=== PATIENT | female | born 1955 | race Caucasian/White ===

== ENCOUNTER 2025-01-03 06:48 | Observation (INO) | payer MEDICARE ==
[2024-12-29 12:00] VITALS: BP 124/64; PULSE 63; RESP 18; TEMP 97.3
[2024-12-29 12:08] LABS: BASOPHILS # (AUTO) 0.11 K/uL (0.00-0.20); BASOPHILS % (AUTO) 1.1 % (0.0-5.0); EOSINOPHILS # (AUTO) 0.05 K/uL (0.00-0.70); EOSINOPHILS % (AUTO) 0.5 % (0.0-8.0); HEMATOCRIT 45.3 % (36-48); IMMATURE GRANULOCYTE ABSOLUTE 0.03 K/uL (0-1); LYMPHOCYTES # (AUTO) 2.7 K/uL (1.0-4.8); LYMPHOCYTES % (AUTO) 27.7 % (21.0-51.0); MEAN CORPUSCULAR HEMOGLOBIN 28.8 pg (27.0-33.0); MEAN CORPUSCULAR HGB CONC 32.5 g/dL (32.0-36.0); MEAN CORPUSCULAR VOLUME 88.6 fL (79-99); MONOCYTES # (AUTO) 0.7 K/uL (0.1-1.0); MONOCYTES % (AUTO) 6.6 % (3.0-13.0); NEUTROPHILS # (AUTO) 6.3 K/uL (1.8-7.7); NEUTROPHILS % (AUTO) 63.8 % (40.0-77.0); PLATELET COUNT (AUTO) 281 K/uL (130-400); RED BLOOD CELL COUNT(AUTO) 5.11 MIL/uL (4.00-5.50); RED CELL DISTRIBUTION WIDTH 12.5 % (11.0-15.5); WHITE BLOOD COUNT (AUTO) 9.8 K/uL (4.8-10.8)
[2024-12-29 12:19] LABS: INR 0.98 (0.85-1.15)
[2024-12-29 12:25] LABS: APPEARANCE,URINE CLEAR (CLEAR); BILIRUBIN,URINE NEGATIVE (NEGATIVE); COLOR,URINE LIGHT-YELLOW (YELLOW); GLUCOSE, URINE (UA) NEGATIVE (NEGATIVE); KETONES,URINE NEGATIVE (NEGATIVE); LEUKOCYTE ESTERASE ,URINE 250 Leu/uL (NEGATIVE); NITRATE,URINE NEGATIVE (NEGATIVE); OCCULT BLOOD,URINE NEGATIVE (NEGATIVE); PH,URINE 6.5 (5.0-8.0); PROTEIN,URINE NEGATIVE (NEGATIVE); UROBILINOGEN,URINE 0.2 mg/dL (0.2-1.0)
[2024-12-29 12:26] LABS: ADD UA MICROSCOPIC YES
[2024-12-29 12:27] LABS: CREATININE 0.8 mg/dL (0.5-1.0); POTASSIUM 5.1 mmol/L (3.5-5.1)
[2024-12-29 12:29] LABS: BACTERIA,URINE RARE /HPF (None Seen); MUCUS,URINE RARE LPF (None Seen); RBC,URINE 0-1 /HPF (0-1); SQUAMOUS EPITHELIAL CELL,UR RARE /HPF (0-2)
--- NOTE | 2025-01-02 09:51 | NUR ---
RE: LABS REPORTED UA AND URINE CX RESULTS TO DR TREVINO, NO NEW ORDERS RECEIVED.
[~2025-01-03] VITALS: Ht 167.6 cm; Wt 83.5 kg
[2025-01-03] VITALS (27 sets, daily range): BP systolic 108–160; BP diastolic 49–87; PULSE 52–82; RESP 12–19; TEMP 97.6–98.2; O2SAT 99
[~2025-01-03 06:48] MED LIST: EZET10TA48 PO; FENTanyl CITRate PF 50 MCG/1 ML 2ML VIAL ONE; GLYCOPYRROLATE 0.2 MG/ML 5 ML VIAL ONE; LIDOCAINE PF 100MG/5ML (2%) SYRINGE 5ML ONE; LISI1TAB51 PO; MIDAZOLAM HCL 1 MG/ML 2ML VIAL ONE; NEOSTIGMINE METHYLSULFATE 1MG/ML IV ONE; SUCCINYLCHOLINE CHLORIDE 20 MG/ML 10 ML VIAL ONE; dexaMETHasone SOD PHOSPHATE 10MG/ML 1ML VIAL ONE; ondanSETRON 4MG INJ ONE; proPOFol 10 MG/ML 20ML VIAL IV ONE; rocuRONium bROMide 10MG/1ML 5ML VL ONE
[2025-01-03] MEDS ORDERED: dexaMETHasone SOD PHOSPHATE 10MG/ML 1ML VIAL ONE (07:42)
[2025-01-03] MEDS: LACTATED RINGERS 1000ML 1,000 ML IV ONE (07:50)
[2025-01-03] MEDS: ceFAZolin SODIUM 2 GM VIAL ONE (07:50)
[2025-01-03] MEDS ORDERED: ondanSETRON 4MG INJ ONE (08:28)
[2025-01-03] MEDS ORDERED: TRANEXAMIC ACID 1000MG/10ML ONE ×2 (08:55→10:11)
[2025-01-03] MEDS ORDERED: VANCOMYCIN 500MG+NS 100ML 100 ML IV ONE (10:10)
[2025-01-03] MEDS ORDERED: ceFAZolin SODIUM 1 GM VIAL ONE ×2 (10:11→10:12)
[2025-01-03] MEDS: ceFAZolin SODIUM 1 GM VIAL ONE (10:41)
[2025-01-03] MEDS: VANCOMYCIN 500MG VIAL IJ ONE (10:41)
[2025-01-03] MEDS ORDERED: FENTanyl CITRate PF 50 MCG/1 ML 2ML VIAL ONE (11:11)
--- NOTE | 2025-01-03 13:16 | OP ---
Operative Note: DATE OF PROCEDURE: 01/03/25 SURGEON: STEFAN TREVINO MD TAR BOILER: [Renay Gabriel CSA] ANESTHESIA: [General anesthesia plus regional block] ANESTHESIOLOGIST/TIME MOTION ANALYST: [Navi Davalos CRNA] PREOPERATIVE DIAGNOSIS: [Right knee osteoarthritis] POSTOPERATIVE DIAGNOSIS: [Right knee osteoarthritis] IMPLANTS: [Biomet vanguard. Femur size 67.5 right PS tibia size 75 fixed cruciate. Patella size 34 x 9 asymmetric. Tibial liner 14 x 70 1/75 PS] PROCEDURE: [Right total knee arthroplasty] ESTIMATED BLOOD LOSS: [250 mL] INDICATIONS: [The patient is a 69-year-old female with history of pain to the right knee secondary to severe osteoarthrosis involving mostly the medial and patellofemoral compartment. The patient has been admitted for a right total knee arthroplasty. Procedure understood, risks, benefits and possible complications and agreed signed the consent form.] DESCRIPTION OF PROCEDURE: [After adequate general anesthesia was achieved and regional block obtained the right lower extremity was prepped and draped in the usual manner previous placement of the tourniquet in the proximal thigh. The extremity was then elevated and exsanguinated with an Esmarch bandage and the tourniquet inflated to 250 mmHg the Esmarch band been then removed. With the knee in flexion a longitudinal incision was then made in the anterior aspect through the skin followed by dissection of the subcutaneous tissue. A bone infusion needle was then inserted in the proximal metaphysis of the tibia just medial to the tibial tubercle and a solution containing 50 mL of normal saline mixed with 500 mg of vancomycin was then injected into the bone. The needle was withdrawn without any difficulty. A paramedian approach was then made with the Bovie cautery cutting through the quadriceps tendon, medial patellar retinaculum and patellar tendon retinaculum. The retropatellar tendon fat was then excised and the soft tissue elements of the tibia were elevated subperiosteally and retractors were applied medially and laterally . The anterior and posterior cruciate ligaments were resected. With the use of a drill a starting hole was made in the distal femur entering the intramedullary canal and then after removal of the drill an intramedullary guide was inserted with a 5 degree valgus block that touched the distal femur and to this the distal femoral cutting guide was then applied anteriorly and was secured to the distal femur with the use of pins. The intramedullary guide was then removed and with the use of the oscillating saw we proceeded to resect the distal femur removing the fragments and the guide. The femoral sizer was then applied distally and drill holes were made removing the sizer and the 4-in-1 cutting block was then inserted and the anterior, posterior and chamfer cuts were made removing the fragments and the block. The posterior cruciate ligament retractor was then inserted posterior to the tibia and this was brought forward proceeding then to apply the external tibial alignment guide and secured the proximal cutting guide to the tibia with the use of pins. With the use of the oscillating saw the proximal cut to the tibia tibia was made. The bone fragment was removed and the trial tibia plate was chosen. At this point the menisci were removed sharply and with the use of the curved osteotome the posterior osteophytes of the femur were removed. The PS cutting guide was then inserted and the intercondylar cut was made removing the fragment and the guide. The trial components were then inserted at the femur and tibia with a trial tibial liner bringing the knee into extension noticing that the patient had a very sta ble knee in flexion, extension and with valgus and varus stress. The knee was maintained in extension and the patella was then addressed proceeding to measure its thickness and then with the use of the oscillating saw we removed nine mm from the articular surface and restored the height with application of a trial component after 3 peg holes were made. The patellofemoral ligament was removed and then the patellofemoral tracking was checked noticing to be normal. At this moment all the components were removed, the tibia after the metaphyseal defect was created and while cement was being mixed on the back table we proceeded to irrigate the joint with antibiotic solution and then cover the entry to the femoral canal with a bone plug. Once the cement was ready we proceeded to apply it first to the tibia surface inserting the final component and then to the femoral surface and inserted the final component removing the excess cement and then applying a trial liner bringing the knee into extension for compression. Then we proceeded to irrigate the patella surface and dried it applying then bone cement and the final patellar component was inserted and was secured with application of a clamp. The joint was irrigated with a warm diluted Betadine solution while the cement dried followed by irrigation with antibiotic solution. The trial liner was removed as well as the patellar clamp and we proceeded then to irrigate the posterior aspect of the joint to remove all the remaining debris and the final tibial liner was inserted and locked against the tibia . The range of motion was checked and noticed to be adequate with full extension and flexion, minimal laxity in valgus or varus stress and with adequate patellofemoral tracking. The patient had no anterior or posterior drawer. After further irrigation the tourniquet was then deflated and the hemostasis was carried down with the Bovie cautery. The wound was then closed with approximation of the quadriceps tendon, patellar retinaculum and patellar tendon retinaculum with #1 Vicryl close stitches alternating with #1 Ethibond stitches and this was followed by closure of the subcutaneous tissue with 2-0 Monocryl inverted stitches and the skin was closed with 3-0 Monocryl subcuticularly. The wound was covered with a suction dressing followed by application of an Dilip bandage for compression and the drapes were then removed transferring the patient to the hospital bed and taken to recovery room for follow-up by anesthesia. There were no complications during the procedure.] STEFAN TREVINO MD Jan 03, 2025 13:16
[2025-01-03] MEDS ORDERED: FERROUS FUMARATE 324 MG TABLET PO PRN (13:30)
[2025-01-03] MEDS ORDERED: PoTASSium chloRIDE 20MEQ/100ML 100 ML IV PRN (13:30)
[2025-01-03] MEDS ORDERED: traMADol HCL 50 MG TABLET PO PRN (13:30)
[2025-01-03] MEDS ORDERED: DiphenhydrAMINE HCL 50 MG/ML VIAL IVP PRN (13:30)
[2025-01-03] MEDS ORDERED: CALCIUM CARB 500MG PO PRN (13:30)
[2025-01-03] MEDS ORDERED: PoTASSium chl 10% ELIXIR 20MEQ 20 MEQ/15 ML UDCUP PO PRN (13:30)
[2025-01-03] MEDS: acetaMINOPHEN 500 MG TABLET PO SCH (13:30)
[2025-01-03] MEDS ORDERED: PoTASSium chloRIDE 20MEQ ER 20 MEQ ERTAB PO PRN (13:30)
[2025-01-03] MEDS ORDERED: ketOROlac 15MG/ML VIAL (15MG/ML) IV PRN (13:30)
[2025-01-03] MEDS ORDERED: TEMAZepam 15 MG CAPSULE PO PRN (13:30)
[2025-01-03] MEDS: 0.9%NACL 1000ML 1,000 ML IV SCH (13:52)
[2025-01-03] MEDS: hydroMORPHone 1 MG INJ ONE (13:52)
[2025-01-03] MEDS: acetaMINOPHEN 100 ML ONE (13:55)
--- NOTE | 2025-01-03 14:40 | NUR ---
arrived from [facility] arrived from [facility], vitals stable, 2L oxygen via nasal cannula, pulses intact and strong, dressing dry and intact. respiratory therapy called for incentive spirometer
[2025-01-03] MEDS: OXYcodONE HCL 5 MG TAB PO PRN (16:30)
[2025-01-03] MEDS: ondanSETRON 4MG INJ IVP PRN (17:01)
--- NOTE | 2025-01-03 17:42 | NUR ---
Pt ambulation was limited d/t an episode of emesis. Addendum: 01/03/25 at 1743 by CHAYO ACOSTA PT PT Amended: Links added.
[2025-01-03] MEDS ORDERED: ceFAZolin SODIUM 2 GM VIAL IVP SCH (18:30)
[2025-01-03] MEDS: ceFAZolin SODIUM 2 GM VIAL IVP SCH (20:37)
[2025-01-03] MEDS: CeleCOXib 200 MG CAP PO SCH (20:44)
[2025-01-03] MEDS: FAMOTIDINE 20MG TAB PO SCH (20:44)
[2025-01-03] MEDS: ASPIRIN 81 MG EC TAB PO SCH (20:44)
[2025-01-04] VITALS (7 sets, daily range): BP systolic 98–138; BP diastolic 48–78; PULSE 56–60; RESP 16–18; TEMP 97.6–98.6; O2SAT 98
[2025-01-04 05:25] LABS: HEMATOCRIT 33.6 % (36-48); MEAN CORPUSCULAR VOLUME 87.7 fL (79-99); RED BLOOD CELL COUNT(AUTO) 3.83 MIL/uL (4.00-5.50); RED CELL DISTRIBUTION WIDTH 12.4 % (11.0-15.5); WHITE BLOOD COUNT (AUTO) 14.6 K/uL (4.8-10.8)
[2025-01-04 05:38] LABS: CREATININE 0.6 mg/dL (0.5-1.0); POTASSIUM 5.2 mmol/L (3.5-5.1)
--- NOTE | 2025-01-04 06:43 | NUR ---
cintia bandage removed, patient sitting on chair, voiced no concerns at this time
--- NOTE | 2025-01-04 08:09 | PN ---
Ortho postop day one. This morning patient is OOB she is comfortable she is awake alert oriented. Reporting little to no pain. Vital signs have been stable. Afebrile. Laboratory results reviewed. Noted to have a drop in hemoglobin and hematocrit as expected after right total knee arthroplasty. Patient is currently asymptomatic and we will address per protocol as necessary. Also had elevated potassium and we will address per protocol 5.2 She is voiding on her own and passing gas but no BM yet. Dilip bandage is removed and the PICCO dressing is intact and plasty green. Gastrocnemius soft nontender. Negative Homans. Range of motion not assessed on this encounter. Ambulated yesterday with physical therapy short distance only a few feet secondary to nausea. Nausea has resolved. Discussed with the patient that we have medication that we can give if the nausea recurs. Pending further physical therapy this morning. Operative findings discussed with the patient. Patient is anticipated to go home with a home health/PT she prefers [facility] Assessment: Status post right total knee arthroplasty. Asymptomatic acute postoperative blood loss anemia. Hyperkalemia Plan: Continue with Dr. Andrade TKA protocol and discharge planning Asymptomatic acute postoperative blood loss anemia addressed with protocol as necessary Hyperkalemia address per protocol Vitals/Labs Vital Signs Date Time Temp Pulse Resp B/P (MAP) Pulse Ox O2 Delivery O2 Flow Rate FiO2 01/04/25 04:00 98.2 59 18 137/78 100 Room Air 21 01/03/25 19:40 2 Laboratory Tests 01/04/25 05:10 Medications Current Medications Dexamethasone Sodium Phosphate 10 mg STK-MED ONCE .ROUTE; Start 01/03/25 at 06:42; Stop 01/03/25 at 06:42; Status DC Lidocaine HCl 100 mg STK-MED ONCE .ROUTE; Start 01/03/25 at 06:42; Stop 01/03/25 at 06:42; Status DC Glycopyrrolate 1 mg STK-MED ONCE .ROUTE; Start 01/03/25 at 06:42; Stop 01/03/25 at 06:42; Status DC Succinylcholine Chloride 200 mg STK-MED ONCE .ROUTE; Start 01/03/25 at 06:42; Stop 01/03/25 at 06:42; Status DC Propofol 200 mg STK-MED ONCE IV; Start 01/03/25 at 06:42; Stop 01/03/25 at 06:43; Status DC Neostigmine Methylsulfate 10 mg STK-MED ONCE IV; Start 01/03/25 at 06:42; Stop 01/03/25 at 06:43; Status DC Ondansetron HCl 4 mg STK-MED ONCE .ROUTE; Start 01/03/25 at 06:42; Stop 01/03/25 at 06:43; Status DC Rocuronium [place] 50 mg STK-MED ONCE .ROUTE; Start 01/03/25 at 06:43; Stop 01/03/25 at 06:43; Status DC Fentanyl Citrate 100 mcg STK-MED ONCE .ROUTE; Start 01/03/25 at 06:43; Stop 01/03/25 at 06:43; Status DC Midazolam HCl 2 mg STK-MED ONCE .ROUTE; Start 01/03/25 at 06:43; Stop 01/03/25 at 06:43; Status DC Cefazolin Sodium 2 gm STK-MED ONCE .ROUTE; Start 01/03/25 at 07:29; Stop 01/03/25 at 07:30; Status DC Lactated Ringer's 1,000 ml @ As Directed STK-MED ONCE IV Last administered on 01/03/25at 07:50; Start 01/03/25 at 07:29; Stop 01/03/25 at 07:30; Status DC Dexamethasone Sodium Phosphate 10 mg STK-MED ONCE .ROUTE; Start 01/03/25 at 07:42; Stop 01/03/25 at 07:42; Status DC Ondansetron HCl 4 mg STK-MED ONCE .ROUTE; Start 01/03/25 at 08:28; Stop 01/03/25 at 08:29; Status DC Tranexamic Acid 1,000 mg STK-MED ONCE .ROUTE; Start 01/03/25 at 08:55; Stop 01/03/25 at 08:55; Status DC Cefazolin Sodium 1 gm STK-MED ONCE .ROUTE Last administered on 01/03/25at 10:41; Start 01/03/25 at 08:55; Stop 01/03/25 at 08:56; Status DC Vancomycin HCl 100 ml @ As Directed STK-MED ONCE IV; Start 01/03/25 at 10:10; Stop 01/03/25 at 10:10; Status DC Tranexamic Acid 1,000 mg STK-MED ONCE .ROUTE; Start 01/03/25 at 10:11; Stop 01/03/25 at 10:11; Status DC Cefazolin Sodium 1 gm STK-MED ONCE .ROUTE; Start 01/03/25 at 10:11; Stop 01/03/25 at 10:11; Status DC Cefazolin Sodium 1 gm STK-MED ONCE .ROUTE; Start 01/03/25 at 10:12; Stop 01/03/25 at 10:12; Status DC Fentanyl Citrate 100 mcg STK-MED ONCE .ROUTE; Start 01/03/25 at 11:11; Stop 01/03/25 at 11:11; Status DC Vancomycin HCl 500 mg STK-MED ONCE IJ Last administered on 01/03/25at 10:41; Start 01/03/25 at 10:41; Stop 01/03/25 at 11:42; Status DC Cefazolin Sodium 2 gm STK-MED ONCE IVPB Last administered on 01/03/25at 10:49; Start 01/03/25 at 10:49; Stop 01/03/25 at 11:42; Status DC Sodium Chloride 1,000 ml @ 100 mls/hr Q10H IV Last administered on 01/03/25at 13:52; Start 01/03/25 at 13:30; Stop 01/04/25 at 13:29 Polyethylene Glycol 17 gm DAILY PO; Start 01/04/25 at 09:00; Stop 02/03/25 at 08:59 Bisacodyl 10 mg DAILY PRN RC; Start 01/06/25 at 13:30; Stop 02/05/25 at 13:29 Ketorolac Tromethamine 15 mg Q6H PRN IV; Start 01/03/25 at 13:30; Stop 01/08/25 at 13:29 Famotidine 20 mg BID PO Last administered on 01/03/25at 20:44; Start 01/03/25 at 21:00; Stop 02/02/25 at 20:59 Ferrous Fumarate 324 mg DAILY PRN PO; Start 01/03/25 at 13:30; Stop 02/02/25 at 13:29 Temazepam 15 mg HS PRN PO; Start 01/03/25 at 13:30; Stop 02/02/25 at 13:29 Ondansetron HCl 4 mg Q6H PRN IVP Last administered on 01/03/25at 17:01; Start 01/03/25 at 13:30; Stop 02/02/25 at 13:29 Calcium Carbonate 500 mg Q12H PRN PO; Start 01/03/25 at 13:30; Stop 02/02/25 at 13:29 Diphenhydramine HCl 25 mg Q6H PRN IVP; Start 01/03/25 at 13:30; Stop 02/02/25 at 13:29 Cefazolin Sodium 2 gm Q8H IVP; Start 01/03/25 at 18:30; Stop 01/03/25 at 15:52; Status DC Potassium Chloride 100 ml @ 100 mls/hr AD PRN IV; Start 01/03/25 at 13:30; Stop 02/02/25 at 13:29 Potassium Chloride 20 meq AD PRN PO; Start 01/03/25 at 13:30; Stop 02/02/25 at 13:29 Potassium Chloride 20 meq AD PRN PO; Start 01/03/25 at 13:30; Stop 02/02/25 at 13:29 Celecoxib 200 mg BID PO Last administered on 01/03/25at 20:44; Start 01/03/25 at 21:00; Stop 02/02/25 at 20:59 Oxycodone HCl 5 mg Q4H PRN PO; Start 01/03/25 at 13:30; Stop 01/10/25 at 13:29 Oxycodone HCl 10 mg Q4H PRN PO Last administered on 01/03/25at 16:30; Start 01/03/25 at 13:30; Stop 01/10/25 at 13:29 Tramadol HCl 50 mg Q6H PRN PO; Start 01/03/25 at 13:30; Stop 01/08/25 at 13:29 Acetaminophen 1,000 mg Q8H PO; Start 01/03/25 at 13:30; Stop 01/07/25 at 13:29 Aspirin 81 mg BID PO Last administered on 01/03/25at 20:44; Start 01/03/25 at 21:00; Stop 02/02/25 at 20:59 Hydromorphone HCl 1 mg STK-MED ONCE .ROUTE Last administered on 01/03/25at 13:52; Start 01/03/25 at 13:40; Stop 01/03/25 at 13:40; Status DC Acetaminophen 100 ml @ As Directed STK-MED ONCE .ROUTE Last administered on 01/03/25at 13:55; Start 01/03/25 at 13:54; Stop 01/03/25 at 13:54; Status DC Cefazolin Sodium 2 gm Q8H IVP Last administered on 01/04/25at 02:34; Start 01/03/25 at 19:00; Stop 01/04/25 at 03:01; Status DC EZETIMIBE 10 mg AM PO; Start 01/04/25 at 09:00; Stop 02/03/25 at 08:59 Miscellaneous Medication 2 each AM PO; Start 01/04/25 at 09:00; Stop 01/03/25 at 16:16; Status DC Lisinopril 40 mg DAILY PO; Start 01/04/25 at 09:00; Stop 02/03/25 at 08:59 Hydrochlorothiazide 25 mg DAILY PO; Start 01/04/25 at 09:00; Stop 02/03/25 at 08:59 DEANDRE PRATHER NP Jan 04, 2025 08:09
[2025-01-04] MEDS ORDERED: NON-FORMULARY MEDICATION 1 EACH (Lisinopril/Hydrochlorothiazide (Lisinopril-Hctz 20-12.5 m PO SCH (09:00)
[2025-01-04] MEDS: LISINOPRIL 40 MG TABLET PO SCH (10:03)
[2025-01-04] MEDS: polyETHYLene GLYCol 3350 17 GM POWD.PACK PO SCH (10:03)
[2025-01-04] MEDS: EZETIMIBE 10 MG TAB PO SCH (10:03)
[2025-01-04] MEDS: hydroCHLOROthiazide 25 MG TABLET PO SCH (10:03)
--- NOTE | 2025-01-04 11:43 | NUR ---
DC PLAN VISITED WITH PATIENT. PATIENT LIVES WITH SPOUSE. INDEPENDENT ABLE TO PERFORM ADL'S. PATIENT HAS NO SERVICES OR DME'S. FEELS SAFE TO RETURN HOME. ARELI SIGNED FOR [facility] AND ANY DME IN NETWORK. PACKET SENT TO [facility] AND TO [facility]. Addendum: 01/04/25 at 1146 by JOHNNY STANTON RN CM Amended: Links added.
--- NOTE | 2025-01-04 13:30 | NUR ---
ORTHO COORDINATOR: TEACHING REGARDING PNEUMONIA AND DVT PREVENTION, PAIN EXPECTATIONS AND PAIN MANAGEMENT. PATIENT IN BED. INCENTIVE SPIROMETER ON BEDSIDE TRAY, PATIENT REPORTS UTILIZING EVERY 2 HOURS, 10 BREATHS. RATIONALE REINFORCED. B SCD IN PLACE, MACHINE FUNCTIONING. PATIENT RETURN DEMONSTRATED PROPER FOOT FLEXION AND EXTENSION EXERCISE. PAIN EXPECTATIONS REVIEWED. NUMERIC PAIN SCALE REVIEWED. PATIENT INSTRUCTED SHE NEEDED TO CALL FOR PAIN MEDICATIONS AND PROVIDE A NUMERIC SCORE WITH TYPE OF PAIN. PATIENT VERBALIZED UNDERSTANDING. KIRAN DRESSING INSTRUCTION SHEET PROVIDED AND REVIEWED. QUESTIONS ANSWERED. PATIENT DESIRES HOME HEALTH. INFORMED HER HOME HEALTH NURSE SHOULD REMOVE DRESSING ON DAY 7. INSTRUCTED PATIENT TO TAKE ADDITIONAL DRESSING HOME IN CASE ISSUE ARISES. PATIENT ENCOURAGED TO CONTINUE PREMEDICATING PRIOR TO PHYSICAL THERAPY OR PERIOD OF HIGH ACTIVITIES AT HOME. PATIENT VERBALIZED UNDERSTANDING. PATIENT REPORTS NEEDED A WALKER. NO ADDITIONAL QUESTIONS OR CONCERNS AT THIS TIME.
--- NOTE | 2025-01-04 18:33 | NUR ---
MANASA PLAN REFERRAL SENT TO [facility] AND TO [facility]. [facility] ACCEPTED PATIENT CM LET NURSE KNOW PENDING WALKER. [facility] SAID NOT IN NETWORK SENT TO [facility] SENT MULTIPLE TIMES FAX NOT WORKING WELL. Addendum: 01/04/25 at 1836 by JOHNNY STANTON RN CM Amended: Links added.
--- NOTE | 2025-01-04 19:18 | DS ---
DISCHARGE SUMMARY [ [Date of admission: 01/03/24 Date of discharge: 01/05/24 Final diagnosis: Left Knee osteoarthritis, UTI on admission. Surgical procedures: Left total Knee arthroplasty on 01/03/24 Summary of History and Physical: The patient is a year-old with history of severe arthrosis to the knee that has been present for several years and has been treated conservatively with no longer adequate response to treatment. The patient is being admitted for total knee arthroplasty. Past Medical History: Hypertension.Hyperlipidemia.Osteoarthritis. Surgical History: right knee open meniscectomy 1977 Family History: HTN, DM, Stroke. Allergies: N.K.D.A. Review of system: Negative on admission Hospital course: The patient was admitted and taken to the operating room for a total knee arthroplasty, procedure that went uneventful. Postoperatively the pa tient remained hemodynamically stable and afebrile. The patient received antibiotic and anticoagulation prophylaxis as per protocol. The patient was evaluated by physical therapy and started rehabilitation treatment with ambulation with the use of walker, weightbearing as tolerated, range of motion exercises and bed transfers. The patient was also evaluated by case management and arrangements were made for discharge. The patient tolerated diet well. On postop day #2 all the arrangements were completed. The dressing was changed and the wound was noted to be stable and the patient was dismissed. She was found on admission to have a Strep UTI and was treted pre and postop with IV first and then oral Abx. Condition on discharge: Good Disposition: The patient will be dismissed Home with . Follow-up will be done at the office in 3 weeks. The patient is to continue with physical therapy and rehabilitation at home and be ambulatory with the use of a walker, weightbearing as tolerated. Continue taking pain medication and antibiotic as instructed as well as anticoagulation prophylaxis. Continue with home medications also as instructed and continue with pre admission diet.] STEFAN TREVINO MD ] STEFAN TREVINO MD Jan 04, 2025 19:18
[2025-01-04] MEDS: OXYcodONE HCL 5 MG TAB PO PRN (20:22)
[2025-01-05] VITALS: BP 97/51; PULSE 62; RESP 18; TEMP 97.5
--- NOTE | 2025-01-05 02:11 | NUR ---
nursing pm note patient alert and oriented times 4. plan of care discussed with her and she verbalized understanding. patient has intermittent right knee pain tonight relieved by pain medication. titi pump flashing green. she has no drainage visible on titi dressing. encouraged her to walk to the toilet to void. she has slept about 7 hours tonight. encouraged her to shower and to put her own home clothes, but she refused. she said she "might shower tomorrow. Ice packs applied per protocol. call light within reach, bed alarm on, 2 side rails up. will continue to monitor patient.
[2025-01-05 04:00] VITALS: BP 93/55; PULSE 63; RESP 18; TEMP 97.5
--- NOTE | 2025-01-05 06:18 | NUR ---
chair took patient to the restroom to wash her teeth. took her to the chair and placed a new ice pack on her right knee. she is comfortable with no pain. scd's on, call light within reach.
[2025-01-05 07:53] VITALS: BP 113/55; PULSE 60; RESP 18; TEMP 97.5
[2025-01-05 08:00] VITALS: O2SAT 100
[2025-01-05] MEDS: AMOX/CLAV 500/125MG TAB PO SCH (08:32)
--- NOTE | 2025-01-05 11:49 | NUR ---
AR PLAN [facility] [phone] PATIENT ACCEPTED TO [facility]. SPOKE TO RYNE ANGEL APPROVED AND TO BE DELIVERED TODAY. Addendum: 01/05/25 at 1154 by JOHNNY STANTON RN CM Amended: Links added.
[2025-01-05 12:00] VITALS: BP 105/56; PULSE 61; RESP 18; TEMP 97.8
--- NOTE | 2025-01-05 14:55 | NUR ---
GAVE REPORT TO [facility]. SPOKE TO KG SAENZ RN. ALL QUESTIONS ANSWERED.
[2025-01-05 16:00] VITALS: BP_SYST 131; BP_SYST 96; BP_DIAS 49; BP_DIAS 55; PULSE 71; PULSE 95; RESP 18; TEMP 98; TEMP 98.1
[2025-01-05] MEDS ORDERED: AEC81 PO (16:27)
[2025-01-05] MEDS ORDERED: HYDR-4060 PO (16:27)
[2025-01-05] MEDS ORDERED: AMOX1TAB15 PO (16:27)
[2025-01-06] MEDS ORDERED: BisaCODYL 10 MG SUPP.RECT RC PRN (13:30)
== END 2025-01-05 18:10 | disposition home or self-care (01) ==
LOC: DAH 06:48 → DAHIP 06:49 → DAH 06:49 → 4BH 14:40
PROVIDERS: ADMIT Orthopaedic Surgery; ATTEND Orthopaedic Surgery
DX: M17.11 Unilateral primary osteoarthritis, right knee (principal); M25.561 Pain in right knee; I10 Essential (primary) hypertension; E78.5 Hyperlipidemia, unspecified; D62 Acute posthemorrhagic anemia; Z96.652 Presence of left artificial knee joint; Z79.899 Other long term (current) drug therapy; Z98.890 Other specified postprocedural states
CPT/HCPCS: 80048 ×2; 85025; 85610; 85730; 87086; 81001; 36415 ×2; 87641; 27447; 64447; 96365; 96375; 97161; 97116 ×5; 97530 ×6; 96366; 85027; G0378 ×49; A4663; J7120 ×2; J3010 ×2; J0690 ×6; J1171; J3490 ×3; J1100 ×2; J0330; J2003; J2250; J2704; J2405 ×3; J2710; J3370 ×2; A9272; A4649 ×3; A4930 ×2; C1713; C1776; A4215; A4223 ×2; A4222; A4221; A4216; A4606